=== PATIENT | female | born 1965 | race Caucasian/White ===

== ENCOUNTER 2019-01-06 15:14 | Emergency (ER) | payer OTHER ==
[~2019-01-06] VITALS: Ht 149.9 cm; Wt 66.0 kg
--- NOTE | 2019-01-06 15:15 | NUR ---
ABD WORSE THIS AFTER NOON AGAIN. PT DX WITH DIVERTIVULITIS 6-7 WEEKS AGO TX WITH ABD, FLARE UP ON FRIDAY AND SEEN AT [facility], STARTED ON CIPRO/FLAGYL AGAIN, DID NOT START TAKING ABX UNTIL 1300 TODAY. PT BACK WITH SEVERE LOWER QUADRANT ABD PAIN. PT REPORTS NEAR SYNCOPE RELATED TO PAIN. DENIES ANY CARDIAC HX. PT TREATED WITH 600MG PO IBUPROFEN EN ROUTE BY EMS, REFUSED STRONGER PAIN MEDS.
[2019-01-06] MEDS ORDERED: MAALOX/HYOSCYAMINE/LIDOCAINE 45 ML BTL PO ONE (16:00)
[2019-01-06] MEDS ORDERED: ONDANSETRON 2MG/ML, 2ML IVPush ONE (16:00)
[2019-01-06] MEDS ORDERED: MORPHINE SULFATE 4 MG/ML, 1ML IVPush PRN (16:00)
[2019-01-06] MEDS ORDERED: SODIUM CHLORIDE FLUSH 10ML SYR IVF ONE (16:00)
[2019-01-06] MEDS ORDERED: MAALOX/HYOSCYAMINE/LIDOCAINE 45 ML BTL ONE (16:04)
[2019-01-06 16:09] LABS: BASOPHILS # (AUTO) 0.06 x10^3/uL (0-0.1); BASOPHILS % (AUTO) 1 % (0-1); EOSINOPHILS # (AUTO) 0.07 x10^3/uL (0-0.4); EOSINOPHILS % (AUTO) 1 % (1-7); LYMPHOCYTES # (AUTO) 1.32 x10^3/uL (1-3.4); LYMPHOCYTES % (AUTO) 22 % (22-44); MD NO; MEAN CORPUSCULAR HEMOGLOBIN 28.1 pg (27.0-34.8); MEAN CORPUSCULAR HGB CONC 33.7 g/dL (32.4-35.8); MEAN CORPUSCULAR VOLUME 83.4 fL (80-100); MEAN PLATELET VOLUME 8.3 fL (7.4-10.4); MONOCYTES # (AUTO) 0.24 x10^3/uL (0.2-0.8); MONOCYTES % (AUTO) 4 % (2-9); NEUTROPHILS # (AUTO) 4.29 x10^3/uL (1.8-6.8); NEUTROPHILS % (AUTO) 72 % (42-75); PLATELET COUNT 325 x10^3/uL (130-400); RED BLOOD COUNT 4.63 x10^6/uL (3.82-5.3); RED CELL DISTRIBUTION WIDTH 14.6 % (9.6-15.2)
[2019-01-06] MEDS ORDERED: METR500T PO (16:13)
[2019-01-06] MEDS ORDERED: CIPR500T3 PO (16:13)
--- NOTE | 2019-01-06 16:15 | NUR ---
PT DECLINED NARCOTIC PAIN MEDS, AGREED TO GI COCKTAIL. VSS. MADE AWARE OF REFUSAL. LABS DRAWN. PT UP TO BATHROOM FOR URINE SAMPLE, PENDING CT.
[2019-01-06 16:18] LABS: ALBUMIN 4.2 g/dL (3.4-5.0); ANION GAP 7 mmol/L (5-15); CALCIUM 9.2 mg/dL (8.5-10.1); CHLORIDE 109 mmol/L (98-107); CREATININE 0.85 mg/dL (0.55-1.02)
--- NOTE | 2019-01-06 16:33 | NUR ---
UA SENT. PT REPORT GI COCKTAIL HELPED PAIN SIGNIFICANTLY, PT MORE COMFORTABLE RESTING ON BED. WAITING ON CT.
[2019-01-06 16:44] LABS: MICROSCOPIC NOT IND
--- NOTE | 2019-01-06 16:46 | NUR ---
PT TO IMAGING.
[2019-01-06] MEDS ORDERED: OMNIPAQUE 350 MG/ML, 100ML BOTTLE ONE (16:55)
[2019-01-06 16:57] LABS: CULTURE INDICATED? NO
--- NOTE | 2019-01-06 17:14 | NUR ---
ALL RESULTS BACK, PT UP FOR RECHECK.
--- NOTE | 2019-01-06 18:04 | NUR ---
RESIDENT MD AT BEDSIDE FOR RE-EVAL AND D/C.
--- NOTE | 2019-01-06 18:39 | NUR ---
D/C INSTRUCTIONS GIVEN WITH REFERRAL TO GI MD. ADDRESSED ALL PT'S QUESTIONS/CONCERNS, VERBALIZED UNDERSTANDING, VSS. PIV REMOVED. PT DRESSED HERSELF AND AMBULATED OUT OF ED IN STABLE CONDITION WITH ALL BELONGINGS.
[2019-01-06 18:43] VITALS: BP 130/91
== END 2019-01-06 18:45 | disposition home or self-care (01) ==
LOC: ED 18:20
DX: R10.32 Left lower quadrant pain (principal); Z88.6 Allergy status to analgesic agent; Z88.1 Allergy status to other antibiotic agents; Z88.0 Allergy status to penicillin; Z90.710 Acquired absence of both cervix and uterus; F17.210 Nicotine dependence, cigarettes, uncomplicated
CPT/HCPCS: 36415; 74177; 80048; 81003; 82040; 85025; 99284; Q9967

== ENCOUNTER 2021-05-04 16:03 | Emergency (ER) | payer MEDICAID, OTHER ==
[~2021-05-04] VITALS: Ht 152.4 cm; Wt 67.7 kg
[~2021-05-04 16:03] MED LIST: CIPR500T4 PO; METR500T PO
[2021-05-04] MEDS ORDERED: SODIUM CHLORIDE 0.9% 1,000ML IVBOLUS ONE (17:00)
[2021-05-04] MEDS ORDERED: ONDANSETRON 2MG/ML, 2ML IVPush ONE (17:00)
[2021-05-04] MEDS ORDERED: SODIUM CHLORIDE FLUSH 10ML SYR IVF ONE (17:00)
[2021-05-04] MEDS ORDERED: HYDROmorphone 1 MG/ML, 1ML INJ IV ONE (17:00)
--- NOTE | 2021-05-04 17:07 | NUR ---
PT BIB SELF VIA POV. PER PT "I THINK MY DIVERTICULITIS IS ACTING UP." C/O BILATERAL LOWER ABD PAIN X2 DAYS. REPORTS 1 EPISODE OF "BLACK STOOL" TODAY. PT RESTING IN R[place], MONITORING IN PLACE, NADN AT THIS TIME, PIV PLACED AND PT MEDICATED PER EMAR, WCTM.
[2021-05-04 17:13] LABS: BASOPHILS % (AUTO) 1 % (0-1); EOSINOPHILS % (AUTO) 2 % (1-7); LYMPHOCYTES % (AUTO) 19 % (22-44); MEAN CORPUSCULAR HEMOGLOBIN 28.8 pg (27.0-34.8); MEAN CORPUSCULAR HGB CONC 34.3 g/dL (32.4-35.8); MONOCYTES % (AUTO) 4 % (2-9); NEUTROPHILS % (AUTO) 74 % (42-75); PLATELET COUNT 397 x10^3/uL (130-400); RED BLOOD COUNT 4.91 x10^6/uL (3.82-5.3); RED CELL DISTRIBUTION WIDTH 14.6 % (9.6-15.2)
[2021-05-04 17:22] LABS: ALANINE AMINOTRANSFERASE 18 U/L (12-78); ALBUMIN 3.8 g/dL (3.4-5.0); ANION GAP 7 mmol/L (5-15); CALCIUM 9.5 mg/dL (8.5-10.1); CHLORIDE 106 mmol/L (98-107); CREATININE 0.82 mg/dL (0.55-1.02)
[2021-05-04 17:24] LABS: ALKALINE PHOSPHATASE 88 U/L (45-117); BILIRUBIN,TOTAL 0.6 mg/dL (0.2-1.0); TOTAL PROTEIN 8.2 g/dL (6.4-8.2)
--- NOTE | 2021-05-04 17:50 | NUR ---
PT TO CT VIA [facility].
[2021-05-04] MEDS ORDERED: OMNIPAQUE 350 MG/ML, 100ML BOTTLE ONE (18:00)
[2021-05-04 19:11] LABS: MICROSCOPIC AUTO
[2021-05-04] MEDS ORDERED: METRONIDAZOLE PMX 500MG/100ML 100 ML ONE (19:11)
[2021-05-04] MEDS ORDERED: METRONIDAZOLE PMX 500MG/100ML 100 ML IV ONE (19:30)
[2021-05-04] MEDS ORDERED: CEFOTETAN PMX 1GM/50ML 50 ML IVPB ONE (19:30)
[2021-05-04 20:12] VITALS: BP 133/76
--- NOTE | 2021-05-04 21:22 | NUR ---
REPORT TO TRUNG AUGUSTINE.
== END 2021-05-04 22:38 | disposition home or self-care (01) ==
LOC: ED 17:44
DX: K57.32 Diverticulitis of large intestine without perforation or abscess without bleeding (principal); F17.290 Nicotine dependence, other tobacco product, uncomplicated
CPT/HCPCS: 36415; 74177; 80053; 81001; 83605; 85025; 87040; 96361; 96365; 96368; 99285; J7030; Q9967